=== PATIENT | male | born 1985 | race Caucasian/White ===

== ENCOUNTER 2021-10-26 18:25 | Emergency (ER) | payer OTHER ==
[~2021-10-26] VITALS: Ht 167.6 cm; Wt 49.9 kg
[2021-10-26 18:42] VITALS: BP 115/65
[2021-10-26] MEDS ORDERED: IBUPROFEN 600 MG TABLET ONE (18:56)
[2021-10-26] MEDS ORDERED: IBUPROFEN 600 MG TABLET PO ONE (19:00)
== END 2021-10-26 19:23 | disposition home or self-care (01) ==
LOC: ER 18:35
DX: M25.531 Pain in right wrist (principal); Y08.89XA Assault by other specified means, initial encounter; Y93.89 Activity, other specified; Y92.89 Other specified places as the place of occurrence of the external cause; Y99.8 Other external cause status